=== PATIENT | female | born 1990 ===

== ENCOUNTER 2017-10-01 16:34 | Emergency (ER) | payer OTHER ==
[2017-10-01 17:08] VITALS: TEMP 98.9
[2017-10-01] MEDS ORDERED: Sodium Chloride 0.9% 1,000 ML IV STA (17:27)
--- NOTE | 2017-10-01 17:32 | ED PDOC ---
Arrival/HPI - General Chief Complaint: Abdominal Pain Time Seen by Provider: 10/01/17 17:04 Historian: Patient - History of Present Illness Narrative History of Present Illness (Text): you were treated in the ED today for abdomen pain, nausea, vomiting without bile /blood and having few seconds passing out due to the pain but without head injury/neck pain. otherwise no dizziness/headache/difficulty breathing/chest pain/numbness/tingling/loss of bowel or bladder or limb function/pain with urination. you stated no STD testing or treatment at this time. 10/01/17 17:30 Time/Duration: 24 hours Past Medical History - Provider Review Nursing Documentation Reviewed: Yes - Travel History Have you recently traveled outside [place] w/in the past 3 mons?: No - Infectious Disease Hx of Infectious Diseases: None - Reproductive Menopause: No - Psychiatric Hx Substance Use: No - Anesthesia Hx Anesthesia: No Family/Social History Family/Social History: No Known Family HX Smoking Status: Unknown If Ever Smoked Hx Alcohol Use: No Hx Substance Use: No Allergies/Home Meds Allergies/Adverse Reactions: Allergies Sulfa (Sulfonamide Antibiotics) Allergy (Verified 10/01/17 17:09) RASH Review of Systems - Review of Systems Constitutional: Normal Eyes: Normal ENT: Normal Respiratory: Normal Cardiovascular: Normal Gastrointestinal: Abdominal Pain, Nausea, Vomiting Genitourinary Female: Normal Musculoskeletal: Normal Skin: Normal Neurological: Normal Endocrine: Normal Hemo/Lymphatic: Normal Psychiatric: Normal Physical Exam Vital Signs Reviewed: Yes Vital Signs Temp Pulse Resp BP Pulse Ox 10/01/17 21:40 92 H 17 123/76 99 10/01/17 17:03 98.9 F 111 H 18 105/72 97 Temperature: Afebrile Blood Pressure: Normal Pulse: Tachycardic Respiratory Rate: Normal Appearance: Positive for: Uncomfortable Pain Distress: Mild Mental Status: Positive for: Alert and Oriented X 3 - Systems Exam Head: Present: Atraumatic, Normocephalic Pupils: Present: PERRL Extroacular Muscles: Present: EOMI Conjunctiva: Present: Normal Ears: Present: Normal Mouth: Present: Moist Mucous Membranes Pharnyx: Present: Normal Nose (External): Present: Atraumatic Nose (Internal): Present: Normal Inspection Neck: Present: Normal Range of Motion Respiratory/Chest: Present: Clear to Auscultation, Good Air Exchange Cardiovascular: Present: Regular Rate and Rhythm Abdomen: Present: Tenderness, Other (generalized) Back: Present: CVA Tenderness (b.l wo cervical or thoracic or lumbar spinal tenderness. no upper paraspinal tenderness) Upper Extremity: Present: Normal Inspection Lower Extremity: Present: Normal Inspection Neurological: Present: GCS=15, CN II-XII Intact, Speech Normal, Motor Func Grossly Intact Skin: Present: Warm, Normal Color Psychiatric: Present: Alert, Oriented x 3, Normal Insight, Normal Concentration , Anxious Medical Decision Making ED Course and Treatment: you were treated in the ED today for abdomen pain, nausea, vomiting without bile /blood, with loose stool and having few seconds passing out due to the pain but without head injury/neck pain. otherwise no dizziness/headache/difficulty breathing/chest pain/numbness/tingling/loss of bowel or bladder or limb function /pain with urination. you stated no STD testing or treatment at this time. You were otherwise breathing easily, smiling with your family, good strength/ sensation, walking easily, clear lungs, mild abdomen tenderness, no fever temp 98.9, improved stable heart rate 98.9_, stable breathing rate 18, excellent oxygen level 97% room air, stable blood pressure 105/72, you have blood tests no infection count 7.8, stable blood level hemoglobin 13.5/platelets 204, stable chemistry sodium 139, potassium 4, bicarbonate 25, chloride 104, bun 16, creatinine 0.7, glucose 106, lipase 121, liver AST/ALT 26/30, Liver Alklaline Phosphatase 70, Liver bilirubin 0.9, heart blood test normal, urine test trace infection, urine test negative, radiology CT head no acute, CT abdomen /pelvis with loose stool findings and without any other acute findings, ECG normal sinus rhythm, intravenous fluids, anti-acid, anti-nausea, macrobid for urine infection, tylenol done in the ED with improvement, counselled to drink lots of fluids and advance diet as tolerated and thus discharged home with family for viral gastroenteritis and urinary tract infection. 1. Recommend zofran as directed for nausea/vomiting 2. Recommend rest. 3. Recommend follow- up primary care 2-3 days to review symptoms, referral to gastroenterology clinic , referral to cardiology and neurology clinic and dont' drive until first clinic visit. 4. If any worsening pain, fever, chills, nausea, vomiting, difficulty breathing, numbness, loss of limb function, pain with urination or any medical condition then return to the ED. pt refused pain medication 10/01/17 17:34 10/01/17 18:27 pt with loc related to pain. no sob/chest pain. no sign of thrombosis. 10/01/17 21:43 10/01/17 21:44 10/01/17 21:44 10/01/17 21:47 10/01/17 21:48 10/01/17 21:50 10/01/17 21:54 - Lab Interpretations Lab Results: 10/01/17 17:30 10/01/17 17:30 Lab Results 10/01/17 18:25: Urine Color Yellow, Urine Appearance Sl cloudy, Urine pH 6.0, Ur Specific [place] 1.020, Urine Protein Negative, Urine Glucose (UA) Negative, Urine Ketones Trace H, Urine Blood Negative, Urine Nitrate Negative, Urine Bilirubin Negative, Urine Urobilinogen 0.2, Ur Leukocyte Esterase Trace H, Urine RBC Negative, Urine WBC 2 - 5, Ur Epithelial Cells 6 - 8, Urine Bacteria Few 10/01/17 17:30: Sodium 139, Potassium 4.0, Chloride 104, Carbon Dioxide 25, Anion Gap 14, BUN 16, Creatinine 0.7, Est GFR ( Amer) > 60, Est GFR (Non- Af Amer) > 60, Random Glucose 106, Calcium 9.1, Total Bilirubin 0.9, AST 26, ALT 30, Alkaline Phosphatase 70, Troponin I < 0.01, Total Protein 8.0, Albumin 4.3, Globulin 3.7, Albumin/Globulin Ratio 1.2, Lipase 121 10/01/17 17:30: PT 12.6 H, INR 1.15 H, APTT 25.2 10/01/17 17:30: WBC 7.8, RBC 4.55, Hgb 13.5, Hct 39.7, MCV 87.3, MCH 29.7, MCHC 34.0, RDW 13.0, Plt Count 204, MPV 10.3, Gran % 90.3 H, Lymph % (Auto) 7.0 L, [place] % (Auto) 2.3, Eos % (Auto) 0.3 L, Baso % (Auto) 0.1, Gran # 7.01 H, Lymph # 0.5 L, [place] # 0.2, Eos # 0.0, Baso # 0.01, Neutrophils % (Manual) 92 H, Lymphocytes % (Manual) 5 L, Atypical Lymphs % 2 H, Monocytes % (Manual) 1, Platelet Evaluation Normal I have reviewed the lab results: Yes - RAD Interpretation Radiology Orders: 10/01/17 18:15 ABD & PELVIS IV CONTRAST ONLY [CT] Stat 10/01/17 18:16 HEAD W/O CONTRAST [CT] Stat Brief Writer: Radiologist - EKG Interpretation Interpreted by ED Physician: Yes (NSR, flipped t waves avr, v1, v2, v3, flattened avl) Type: 12 lead EKG - Medication Orders Current Medication Orders: Acetaminophen (Tylenol 325mg Tab) 975 mg PO STAT STA Stop: 10/01/17 21:43 Nitrofurantoin Macrocrystals (Macrobid) 100 mg PO ONCE ONE Stop: 10/01/17 21:43 Discontinued Medications Sodium Chloride (Sodium Chloride 0.9%) 1,000 mls @ 1,000 mls/hr IV .Q1H STA Stop: 10/01/17 18:26 Last Admin: 10/01/17 17:25 Dose: 1,000 mls/hr eMAR Start Stop Document 10/01/17 17:25 RD (Rec: 10/01/17 17:36 RD [id number]) Intravenous Solution Start Date 10/01/17 Start Time 17:25 End Date 10/01/17 End time 18:25 Total Infusion Time 60 Ondansetron HCl (Zofran Inj) 4 mg IVP STAT STA Stop: 10/01/17 17:28 Last Admin: 10/01/17 17:52 Dose: 4 mg Comments: Administration cleared by JANNA Lombardo from pharmacy. IVP Administration Document 10/01/17 17:52 RD (Rec: 10/01/17 18:01 RD [id number]) Charges for Administration # of IVP Administrations 1 Pantoprazole Sodium (Protonix Inj) 40 mg IVP STAT STA Stop: 10/01/17 17:28 Last Admin: 10/01/17 17:50 Dose: 40 mg Comments: Administration cleared by JANNA Lombardo from pharmacy. IVP Administration Document 10/01/17 17:50 RD (Rec: 10/01/17 18:00 RD [id number]) Charges for Administration # of IVP Administrations 1 Disposition/Present on Arrival - Present on Arrival Any Indicators Present on Arrival: No History of DVT/PE: No History of Uncontrolled Diabetes: No Urinary Catheter: No History of Decub. Ulcer: No History Surgical Site Infection Following: None - Disposition Have Diagnosis and Disposition been Completed?: Yes Diagnosis: Viral gastroenteritis, UTI (urinary tract infection) Disposition: HOME/ ROUTINE Disposition Time: 21:55 Patient Plan: Discharge Patient Problems: Current Active Problems Problem Status Onset UTI (urinary tract infection) Acute Viral gastroenteritis Acute Condition: IMPROVED Additional Instructions: ou were treated in the ED today for abdomen pain, nausea, vomiting without bile/ blood, with loose stool and having few seconds passing out due to the pain but without head injury/neck pain. otherwise no dizziness/headache/difficulty breathing/chest pain/numbness/tingling/loss of bowel or bladder or limb function /pain with urination. you stated no STD testing or treatment at this time. You were otherwise breathing easily, smiling with your family, good strength/ sensation, walking easily, clear lungs, mild abdomen tenderness, no fever temp 98.9, improved stable heart rate 98.9_, stable breathing rate 18, excellent oxygen level 97% room air, stable blood pressure 105/72, you have blood tests no infection count 7.8, stable blood level hemoglobin 13.5/platelets 204, stable chemistry sodium 139, potassium 4, bicarbonate 25, chloride 104, bun 16, creatinine 0.7, glucose 106, lipase 121, liver AST/ALT 26/30, Liver Alklaline Phosphatase 70, Liver bilirubin 0.9, heart blood test normal, urine test trace infection, urine test negative, radiology CT head no acute, CT abdomen /pelvis with loose stool findings and without any other acute findings, ECG normal sinus rhythm, intravenous fluids, anti-acid, anti-nausea, macrobid for urine infection, tylenol done in the ED with improvement, counselled to drink lots of fluids and advance diet as tolerated and thus discharged home with family for viral gastroenteritis and urinary tract infection. 1. Recommend zofran as directed for nausea/vomiting 2. Recommend rest. 3. Recommend follow- up primary care 2-3 days to review symptoms, referral to gastroenterology clinic , referral to cardiology and neurology clinic and dont' drive until first clinic visit. 4. If any worsening pain, fever, chills, nausea, vomiting, difficulty breathing, numbness, loss of limb function, pain with urination or any medical condition then return to the ED. Prescriptions: Nitrofurantoin Macrocrystals [Macrobid] 100 mg PO Q12 7 Days #7 cap Ondansetron ODT [Zofran ODT] 4 mg PO Q8 PRN #20 odt PRN Reason: Nausea/Vomiting Forms: [employer] (Japanese)
[2017-10-01 17:41] LABS: BASO # 0.01 K/mm3 (0.0-2.0); BASO % 0.1 % (0.0-3.0); EOS % 0.3 % (1.5-5.0); GRAN # 7.01 (1.4-6.5); GRAN % 90.3 % (50.0-68.0); HEMATOCRIT 39.7 % (36.0-48.0); LYMPH # 0.5 (1.2-3.4); MEAN CELL VOLUME 87.3 fl (80.0-105.0); MEAN CORPUSCULAR HEMOGLOBIN 29.7 pg (25.0-35.0); MEAN PLATELET VOLUME 10.3 fl (7.0-11.0); MONO # 0.2 (0.1-0.6); MONO % 2.3 % (1.0-6.0); PLATELET COUNT 204 10^3/uL (120.0-450.0); WHITE BLOOD COUNT 7.8 10^3/ul (4.5-11.0)
[2017-10-01 17:52] LABS: ALB/GLOB RATIO 1.2 (1.1-1.8); ALKALINE PHOSPHATASE 70 U/L (38-126); ALT/SGPT 30 U/L (7-56); AST/SGOT 26 U/L (14-36); BILIRUBIN,TOTAL 0.9 mg/dL (0.2-1.3); BLOOD UREA NITROGEN 16 mg/dL (7-21); CALCIUM 9.1 mg/dL (8.4-10.5); CARBON DIOXIDE 25 mmol/L (21-33); CHLORIDE 104 mmol/L (98-107); GFR AFRICAN-AMERICAN > 60; GLUCOSE,RANDOM 106 mg/dL (70-110); LIPASE 121 U/L (23-300); SODIUM 139 mmol/L (132-148)
[2017-10-01 17:53] LABS: INR 1.15 (0.93-1.08); PARTIAL THROMBOPLASTIN TIME 25.2 Seconds (25.1-36.5)
[2017-10-01 18:03] LABS: TROPONIN I < 0.01 ng/mL
[2017-10-01 18:41] LABS: URINE BILIRUBIN NEGATIVE (NEGATIVE); URINE BLOOD NEGATIVE (NEGATIVE); URINE GLUCOSE (UA) NEGATIVE (NEGATIVE); URINE KETONE TRACE mg/dL (NEGATIVE); URINE LEUKOCYTE ESTERASE TRACE Leu/uL (NEGATIVE); URINE PROTEIN NEGATIVE mg/dL (<30 mg/dL); URINE UROBILINOGEN 0.2 E.U./dL (<1 E.U./dL)
[2017-10-01] MEDS ORDERED: Iohexol 350 MG/100 ML VIAL ONE (18:58)
[2017-10-01 18:59] LABS: URINE APPEARANCE SL CLOUDY (CLEAR); URINE COLOR YELLOW (YELLOW)
[2017-10-01 19:01] LABS: URINE BACTERIA FEW (NEG); URINE RBC NEGATIVE /hpf (0-2)
[2017-10-01 19:13] LABS: ATYPICAL LYMPHOCYTE 2 % (0.0-0.0); NEUTROPHIL 92 % (50.0-70.0); PLATELET ESTIMATE NORMAL (NORMAL)
--- NOTE | 2017-10-01 21:05 | CT ---
EXAM: CT Head Without Intravenous Contrast CLINICAL HISTORY: 27 years old, female; Signs and symptoms; Other: Loss of consiousness; Additional info: 27yof, with loss of consciousness TECHNIQUE: Axial computed tomography images of the head/brain without intravenous contrast. All CT scans at this facility use one or more dose reduction techniques, viz.: automated exposure control; ma/kV adjustment per patient size (including targeted exams where dose is matched to indication; i.e. head); or iterative reconstruction technique. COMPARISON: No relevant prior studies available. FINDINGS: Brain: No intracranial hemorrhage. No mass. No definite edema. Ventricles: No hydrocephalus. Bones/joints: No acute fracture. Soft tissues: Unremarkable. Sinuses: No acute sinusitis. Mastoid air cells: No mastoid effusion. Orbits: Unremarkable as visualized. IMPRESSION: 1. No definite acute intracranial abnormality.
--- NOTE | 2017-10-01 21:20 | CT ---
EXAM: CT Abdomen and Pelvis With Intravenous Contrast CLINICAL HISTORY: 27 years old, female; Pain; Abdominal pain; Generalized; Additional info: 27yof, with abdomen pain/tenderness TECHNIQUE: Axial computed tomography images of the abdomen and pelvis with intravenous contrast. All CT scans at this facility use one or more dose reduction techniques, viz.: automated exposure control; ma/kV adjustment per patient size (including targeted exams where dose is matched to indication; i.e. head); or iterative reconstruction technique. Coronal and sagittal reformatted images were created and reviewed. CONTRAST: 88 mL of OMNI 350 administered intravenously. COMPARISON: No relevant prior studies available. FINDINGS: Limitations: Motion artifact - mild. Lower thorax: No acute findings. ABDOMEN: Liver: Unremarkable. No mass. Gallbladder and bile ducts: No calcified stones. No ductal dilation. Pancreas: No ductal dilation. No mass. Spleen: No splenomegaly. Adrenals: No mass. Kidneys and ureters: No mass. No hydronephrosis. Stomach and bowel: Small fluid/loose stool within colon. No definite mural thickening. No obstruction. Appendix: Normal caliber. No definite inflammation. PELVIS: Bladder: Unremarkable. Reproductive: Unremarkable as visualized. ABDOMEN and PELVIS: Intraperitoneal space: No significant fluid collection. No free air. Bones/joints: No acute fracture. Soft tissues: Unremarkable. Vasculature: Unremarkable. No aneurysm. Lymph nodes: No pathologically enlarged lymph nodes. IMPRESSION: 1. Fluid/loose stool within bowel may suggest diarrhea illness. 2. Incidental/non-acute findings are described above.
[2017-10-01 21:41] VITALS: BP 123/76; PULSE 92; RESP 17; O2SAT 99
--- NOTE | 2017-10-02 10:14 | CARD ---
APPROVED REPORT EKG Measurement Heart [id number] <Conclusion> Sinus tachycardia(100) RVCD
== END 2017-10-01 22:11 | disposition home or self-care (01) ==
LOC: ED 16:34
DX: A08.4 Viral intestinal infection, unspecified (principal); N39.0 Urinary tract infection, site not specified
CPT/HCPCS: 70450; 74177; 80053; 81001; 83690; 84484; 85025; 85610; 85730; 87086; 93005; 96361; 96374; 96375; 99283; C9113; J2405; J7040; Q9967